=== PATIENT | female | born 1945 | race Two or more races ===

== ENCOUNTER → 2017-09-25 | Emergency (ER) | payer SELFPAY ==
[~2017-09-25] VITALS: Ht 167.6 cm; Wt 90.7 kg
[~2017-09-25] MED LIST: ALBUTEROL SULF 2.5 MG/0.5ML(0.5%) NEB SOLN ONE; AMIODARONE HCL 900 MG IV ONE; AMIODARONE HCL 900 MG in DEXTROSE 500 ML IV SCH; AZITHROMYCIN 500MG/ 250ML 250 ML IV ONE; EPINEPHrine HCL 1 MG/10 ML SYRG IV ONE; IPRATROPIUM BROM 0.5 MG/2.5ML INH SOL ONE; NOREPINEPHRINE 8 MG/250ML KIT 250 ML IV SCH; SODIUM BICARBONATE 8.4 % INJ 50ML VIAL IV ONE; SODIUM BICARBONATE 8.4% INJ 50ML SYRINGE ONE; cefTRIAXone 1GM/50ML D5W 50 ML IV ONE
[2017-09-25 02:50] LABS: Basophils # (auto) 0.1 uL; Eosinophils # (auto) 0 uL; Hemoglobin 12.2 g/dL (12.2-16.2); Monocytes # (auto) 0.5 uL; Monocytes % (auto) 6.2 % (0.0-12.0)
[2017-09-25 02:51] LABS: Basophils % (auto) 0.7 % (0.0-2.0); Eosinophils % (auto) 0.6 % (0.0-7.0); Hematocrit 37.4 % (36.0-46.0); Lymphocytes # (auto) 4.1 uL; Lymphocytes % (auto) 52.4 % (10.0-50.0); Mean Corpuscular Hemoglobin 34.5 pg (28.0-32.0); Mean Corpuscular Hgb Conc. 32.5 g/dL (32.0-36.0); Neutrophils # (auto) 3.1 uL; Neutrophils % (auto) 40.1 % (37.0-80.0); Nucleated Red Blood Cells % 0.5 %; Platelet Count (auto) 133 10^3/uL (140-450); Red Cell Distribution Width 15.3 % (11.8-14.3); White Blood Cell 7.7 10^3/uL (4.4-10.8)
[2017-09-25 03:08] LABS: INR 1.2 (0.9-1.15); Partial Thromboplastin Time 30.2 sec (22.64-33.71); Prothrombin Time 13.1 sec (9.37-12.3)
[2017-09-25 03:10] VITALS: BP 61/28
[2017-09-25 03:29] LABS: Albumin 2.9 g/dL (3.4-5.0); BUN/Creatinine Ratio 31.2; Bilirubin, Total 1.4 mg/dL (0.2-1.0); Calcium 8.4 mg/dL (8.5-10.1); Magnesium 2.8 mg/dL (1.6-2.6); Potassium 5.2 mmol/L (3.5-5.1); Total Protein 6.9 g/dL (6.4-8.2)
[2017-09-25 03:42] LABS: Lactic Acid w/Reflex 5.8 mmol/L (0.4-2.0)
[2017-09-25 03:45] LABS: REFLEX LACTIC ACID YES OR NO YES
[2017-09-25 20:42] LABS: Allen Test Yes; Base Excess 10.7 mmol/L (-2.0-2.0); Blood 02Sat 97.5 % (96-100); Blood COHb 0.4 % (0.5-1.5); Blood MetHb 0.2 % (0.0-1.5); HCO3 43.3 mmol/L (22-26.0); HHb 2.5 % (0.0-5.0); IE RATIO 1.1:1; MODE VENT - PCV; O2Hb 96.9 % (94.0-97.0); PCO2 117.7 mmHg (35.0-45.0); PCO2(T) 117.7 mmHg (35.0-45.0); PIP 30; PO2 140.9 mmHg (80.0-100.0); PO2(T) 140.9 mmHg (80.0-100.0); Sample Type Arterial; Spont Vt 239; pH 7.184 (7.350-7.450)
== END | disposition expired ==
LOC: ER 02:32 → EDBD 02:32
DX: I46.9 Cardiac arrest, cause unspecified (principal); J44.9 Chronic obstructive pulmonary disease, unspecified; I50.9 Heart failure, unspecified
CPT/HCPCS: 36415; 36600; 71010; 80053; 82805; 82962; 83605; 83735; 84484; 85025; 85610; 85730; 92950; 94002; 96365; 99285; J0171; J0282; J0456; J0696; J7060; 93005